=== PATIENT | female | born 1985 | race African-American/Black ===

== ENCOUNTER 2020-03-07 13:19 | Emergency (ER) | payer MEDICAID ==
[~2020-03-07] VITALS: Ht 175.3 cm; Wt 181.4 kg
[2020-03-07 13:50] VITALS: BP 130/79
[2020-03-07] MEDS ORDERED: Omnipaque-300 100ml vial INJ PRN (14:00)
[2020-03-07 14:11] LABS: APPEARANCE,URINE SLIGHTLY CLOUDY; BILIRUBIN, URINE NEGATIVE (NEGATIVE); COLOR,URINE PALE YELLOW; GLUCOSE, URINE (UA) NEGATIVE (NEGATIVE); KETONES,URINE NEGATIVE (NEGATIVE); LEUKOCYTE ESTERASE ,URINE 1+ (NEGATIVE); NITRITE,URINE NEGATIVE (NEGATIVE); PH,URINE 7 (4.5-8.0); PROTEIN,URINE 2+ (NEGATIVE); UROBILINOGEN,URINE NORMAL MG/DL (0.0-1.0)
[2020-03-07 14:55] LABS: BASOPHILS % (AUTO) 1.2 % (0.0-2.0); HEMATOCRIT 44.7 % (37.0-47.0); HEMOGLOBIN 14.5 G/DL (12.0-16.0); LYMPHOCYTES % (AUTO) 41.4 % (20.0-45.0); MEAN CORPUSCULAR VOLUME 81 FL (80-99); NEUTROPHILS % (AUTO) 46.4 % (45.0-75.0); PLATELET COUNT 316 K/UL (150-450); RED BLOOD COUNT 5.49 M/UL (4.20-5.40); RED CELL DISTRIBUTION WIDTH 11.8 % (11.6-14.8); WHITE BLOOD COUNT 7.1 K/UL (4.8-10.8)
[2020-03-07 15:07] LABS: ANION GAP 10 mmol/L (5-15); BLOOD UREA NITROGEN 10 mg/dL (7-18); CALCIUM 9.3 MG/DL (8.5-10.1); CARBON DIOXIDE 30 MMOL/L (21-32); CHLORIDE 100 MMOL/L (98-107); CREATININE 0.9 MG/DL (0.55-1.30); POTASSIUM 3.2 MMOL/L (3.5-5.1); SODIUM 140 MMOL/L (136-145)
[2020-03-07 15:11] LABS: ALANINE AMINOTRANSFERASE 28 U/L (12-78); ALBUMIN 3.5 G/DL (3.4-5.0); ALBUMIN/GLOBULIN RATIO 0.8 (1.0-2.7); ALKALINE PHOSPHATASE 61 U/L (46-116); ASPARTATE AMINO TRANSFERASE 25 U/L (15-37); BILIRUBIN,TOTAL 0.3 MG/DL (0.2-1.0)
--- NOTE | 2020-03-07 16:09 | Diagnostic Imaging Report ---
Clinical Indication: Right lower back pain radiating to the right abdomen for 9 days Technique: No oral contrast utilized, per emergency room physician request IV administration nonionic contrast. Venous phase spiral acquisition obtained through the abdomen and pelvis. Multiplanar reconstructions were generated. Total dose length product 1914 mGycm. CTDIvol(s) 31 mGy. Dose reduction achieved using automated exposure control Comparison: none Findings: Lack of enteric contrast limits assessment of the GI tract. There is also some image degradation due to image noise related to patient body habitus as well as some respiratory motion artifact. No evidence of colonic diverticulosis or diverticulitis. The appendix is normal. No small bowel distention. No free or loculated intraperitoneal gas or fluid, as described The gallbladder has been removed. The liver is grossly unremarkable. The bile ducts are grossly unremarkable. The pancreas, spleen, adrenals, kidneys are grossly unremarkable. No retroperitoneal or mesenteric mass or adenopathy. No pelvic mass or adenopathy. The bones are unremarkable. Included lung bases are clear. Impression: Very limited exam, due to lack of enteric contrast, respiratory motion artifact, and noisy images. No definite acute or significant abnormality Evidence of prior cholecystectomy. The CT scanner at [facility] is accredited by the [employer] and the scans are performed using protocols designed to limit radiation exposure to as low as reasonably achievable to attain images of sufficient resolution adequate for diagnostic evaluation.
--- NOTE | 2020-03-07 16:24 | Emergency Room Report ---
History of Present Illness General Chief Complaint: Abdominal Pain Source: Patient Present Illness HPI 34-year-old morbidly obese female with no significant past medical history other than hypertension currently controlled medication here complaining of 10 days of low back pain with radiation to right side of abdomen. Denies urinary frequency and urgency or dysuria. Denies fever and chills, chest pain shortness of breath. Denies cough and congestion. Also reports that she has history of irregular menstrual periods however has never seen a tower cleaner in this regard. Reports that her last menstrual period started few days ago and now she is clotting. Reports she was last sexually active 10 days ago. Reports that she usually has irregular menses and gets them every few months. Denies being on any control. Patient appears to be overly anxious, also says that she feels pain in different sites of body, is afraid that she might have cancer. She is requesting for a biopsy of her cervix. Denies any history of cervical cancer. Denies tobacco smoke, alcohol intake, drug use. Patient reports that the pain starts in the lower back and radiates to part of the right leg however denies tingling and numbness. Denies urinary bowel incontinence. Denies saddle paresthesia. Allergies: Coded Allergies: No Known Allergies (Unverified , 03/07/20) COVID-19 Screening Contact w/high risk pt: No Recent Travel to affected area: No Experienced COVID-19 symptoms?: No Patient History Past Medical History: see triage record Past Surgical History: none Pertinent Family History: none Last Menstrual Period: 02/27/20 Now: No Immunizations: UTD Reviewed Nursing Documentation: PMH: Agreed; PSxH: Agreed Nursing Documentation-PMH Past Medical History: No History, Except For Hx Hypertension: Yes Review of Systems All Other Systems: negative except mentioned in HPI Physical Exam Vital Signs Date Time Temp Pulse Resp B/P (MAP) Pulse Ox O2 Delivery O2 Flow Rate FiO2 03/07/20 13:27 97.9 68 20 137/93 (108) 96 Room Air 03/07/20 13:50 99 Sp02 EP Interpretation: reviewed, normal General Appearance: no apparent distress, alert, GCS 15, non-toxic Head: normocephalic, atraumatic Eyes: bilateral eye normal inspection, bilateral eye PERRL ENT: hearing grossly normal, normal pharynx, no angioedema, normal voice Neck: full range of motion, supple/symm/no masses Respiratory: chest non-tender, lungs clear, normal breath sounds, no rhonchi, no wheezing, speaking full sentences Cardiovascular #1: regular rate, rhythm, no edema Gastrointestinal: non tender, soft, no mass Rectal: deferred Genitourinary: no CVA tenderness Musculoskeletal: back normal Neurologic: alert, oriented Psychiatric: judgement/insight normal, memory normal, mood/affect normal, no suicidal/homicidal ideation Skin: no rash Lymphatic: no adenopathy Medical Decision Making PA Attestation All my diagnosis and treatment plans were reviewed ad discussed with my supervising physician Dr. Domínguez Diagnostic Impression: Primary Impression: Dysfunctional uterine bleeding Additional Impressions: Sciatica Abdominal pain ER Course 34-year-old morbidly obese female with no significant past medical history other than hypertension currently controlled medication here complaining of 10 days of low back pain with radiation to right side of abdomen. Denies urinary frequency and urgency or dysuria. Denies fever and chills, chest pain shortness of breath. Denies cough and congestion. Also reports that she has history of irregular menstrual periods however has never seen a tower cleaner in this regard. Reports that her last menstrual period started few days ago and now she is clotting. Reports she was last sexually active 10 days ago. Reports that she usually has irregular menses and gets them every few months. Denies being on any control. Patient appears to be overly anxious, also says that she feels pain in different sites of body, is afraid that she might have cancer. She is requesting for a biopsy of her cervix. Denies any history of cervical cancer. Denies tobacco smoke, alcohol intake, drug use.Patient reports that the pain starts in the lower back and radiates to part of the right leg however denies tingling and numbness. Denies urinary bowel incontinence. Denies saddle paresthesia. Ddx considered but are not limited to: appendicitis, cholecystis, gastritis, gastroenteritis, UTI, pyelonephritis, SBO, diverticulitis, influenza with GI manifestation, [place], complication with , uterine fibroids, PCOS, DUB Vital signs: are WNL, pt. is afebrile H&PE are most consistent with: Dysfunctional uterine bleeding, abdominal pain, sciatica ORDERS: abdominal CT, CBC, CMP, UA, urine test, Robaxin, lidocaine patch, ibuprofen ED INTERVENTIONS: None required at this time. DISCHARGE: At this time pt. is stable for d/c to home. Will provide printed patient care instructions, and any necessary prescriptions. Care plan and follow up instructions have been discussed with the patient prior to discharge. Gave a list of free clinics the patient to follow-up with primary doctor for referral to tower cleaner for dysfunctional uterine bleeding. At this time the status of PCOS cannot be established patient needs to have a female hormone testing and further testing done by primary doctor. Advised weight loss. If worsening symptoms return to the emergency room Patient was evaluated in the context of the global COVID-19 pandemic, which necessitated consideration that the patient might be at risk for infection with the SARS-COV-2 virus that causes COVID-19. Institutional protocols and algorithms that pertain to the evaluation of patients at risk for COVID-19 are in a state of rapid change based on information relieved by multiple regulatory bodies including the CDC and the federal and state organizations. These policies and algorithms were followed during the patient's care in the ED. CT/MRI/US Diagnostic Results CT/MRI/US Diagnostic Results : Imaging Test Ordered: CT abdomen pelvis with contrast Impression Status post cholecystectomy. Otherwise within normal limits Last Vital Signs Date Time Temp Pulse Resp B/P (MAP) Pulse Ox O2 Delivery O2 Flow Rate FiO2 03/07/20 13:50 65 19 Room Air 99 03/07/20 13:50 97.9 130/79 99 Disposition: HOME, SELF-CARE Condition: Stable Scripts Lidocaine Patch* (Lidoderm Patch*) 1 Each Adh..patch 1 PATCH TOPIC DAILY, #30 PATCH Patch(es) may remain in place for up to 12 hours in any 24-hour period. Prov: FannymogMicki liriano 03/07/20 Ibuprofen* (MOTRIN*) 600 Mg Tablet 600 MG ORAL THREE TIMES A DAY, #30 TAB Prov: FannymogMicki liriano 03/07/20 Methocarbamol* (ROBAXIN-500*) 500 Mg Tablet 500 MG ORAL TID PRN for For Pain, #15 TAB 0 Refills Prov: Micki Borden 03/07/20 Referrals: [facility]ERR[facility] (PCP) Patient Instructions: Dysfunctional Uterine Bleeding, Sciatica, [id number], Abdominal Pain, Adult Additional Instructions: Follow-up with your primary doctor for referral to tower cleaner regarding her dysfunctional uterine bleeding. Avoid strenuous physical activity of the affected side. If worsening symptoms return to emergency room Micki Borden Mar 07, 2020 16:24
[2020-03-07] MEDS ORDERED: LIDODERM700 M1 TOPIC (16:25)
[2020-03-07] MEDS ORDERED: IBUPROFEN600 M1 ORAL (16:25)
[2020-03-07] MEDS ORDERED: ROBAXIN-500MG ORAL (16:25)
[2020-03-07 16:39] VITALS: BP 124/71
== END 2020-03-07 16:40 | disposition home or self-care (01) ==
LOC: EMR 14:00
DX: N93.9 Abnormal uterine and vaginal bleeding, unspecified (principal); M54.30 Sciatica, unspecified side; R10.9 Unspecified abdominal pain; I10 Essential (primary) hypertension; E66.01 Morbid (severe) obesity due to excess calories; Z90.49 Acquired absence of other specified parts of digestive tract; Z68.43 Body mass index [BMI] 50.0-59.9, adult
CPT/HCPCS: 36415; 74177; 80053; 81003; 81025; 83690; 85025; Q9967; Z7502; 99284